=== PATIENT | male | born 1955 | race Caucasian/White ===

== ENCOUNTER 2017-03-22 13:26 | Inpatient (IN) ==
[2017-03-22] MEDS ORDERED: Aspirin 81 MG TAB.CHEW PO STA (13:39)
--- NOTE | 2017-03-22 14:18 | Emergency Department Note ---
Disposition Clinical Impression: NSTEMI (non-ST elevated myocardial infarction), Left ventricular hypertrophy Disposition: Admitted As Inpatient Condition: Good Time of Disposition: 15:51 General Adult HPI - General Chief complaint: ED Shortness of Breath/Dyspnea Stated complaint: warren Time Seen by Provider: 03/22/17 13:33 Source: patient Limitations: no limitations Nursing Notes Reviewed: Yes Vital Signs Reviewed: Yes - History of Present Illness HPI Narrative: 3-4 day history of shortness of breath. Was sent from the [place] for an elevated troponin. Does have left ventricular hypertrophy on his EKG. Denies chest pain. States the shortness of breath is worse whenever he lays down. No dyspnea on exertion. No dyspnea at rest currently. Pain Scale: 0 - Related Data Home Medications Medication Instructions Recorded Confirmed No Known Home Drugs 03/22/17 03/22/17 Allergies Allergy/AdvReac Type Severity Reaction Status Date / Time No Known Allergies Allergy Verified 03/22/17 13:28 All systems ED: reviewed and negative except as stated. Constitutional: Denies: fever, chills ENT ED: Denies: congestion Cardiovascular: Denies: chest pain, palpitations, syncope Respiratory: Reports: dyspnea (Intermittent). Denies: cough, wheezes Gastrointestinal: Denies: abdominal pain, nausea, vomiting, diarrhea, hematemesis, melena, hematochezia Genitourinary: Denies: urgency, dysuria, frequency, hematuria Musculoskeletal: Denies: back pain, neck pain Integumentary: Denies: rash Neurological: Denies: headache, weakness Past Medical History - Past Medical History Medical history: Reports: COPD Psychiatric history: Reports: no psych history - Social History Smoking Status: Current every day smoker Smokeless Tobacco Status: No Alcohol use: Reports: none, rarely Drug use: Reports: marijuana Physical Exam - General Limitations: no limitations General appearance: alert, in no apparent distress - Head Head exam: atraumatic, normocephalic, normal inspection - Eye Eye exam: Present: normal appearance, PERRL, EOMI. Absent: scleral icterus, conjunctival injection - ENT ENT exam: normal exam, normal oropharynx, mucous membranes moist - Neck Neck exam: Present: normal inspection, full ROM, trachea midline. Absent: tenderness, meningismus, lymphadenopathy - Chest Chest inspection: Present: normal inspection, symmetric chest wall rise. Absent : tenderness, rash, abscess - Respiratory Respiratory exam: Present: normal lung sounds bilaterally. Absent: respiratory distress, wheezes, stridor, accessory muscle use - Cardiovascular Cardiovascular exam: Present: regular rate, normal rhythm, normal heart sounds - Abdominal Exam Abdominal exam: Present: soft, Non-Tender. Absent: tenderness, distention, guarding, rebound, rigidity, organomegaly, Anaya's sign, Rovsing's sign, tenderness at McBurney's Point - Extremities Exam Extremities exam: Present: normal inspection, full ROM, normal capillary refill. Absent: tenderness, pedal edema - Back Exam Back exam: Present: normal inspection, full ROM. Absent: tenderness - Neurological Exam Neurological exam: Present: alert, oriented X3 - Psychiatric Psychiatric exam: Present: normal affect, normal mood - Skin Skin exam: Present: warm, dry, intact, normal color. Absent: rash, cyanosis, diaphoresis, erythema Course Course Narrative: Male patient presents emergency from the [facility]. He was found to have an elevated troponin at the [facility] and sent here. His troponin is 0.069. He denies any chest pain. He does state he has had a 3-4 day history of shortness of breath. This was a sudden onset. No cough no fevers no chills. The shortness of breath gets worse whenever he lays down. Denies any shortness of breath at this time. His occurrence every day smoker of 1-1/2 packs of cigarettes. Also smokes marijuana every other day. He is resting comfortably in bed at this time. Lung sounds are clear heart tones are normal. Chest x-ray from the [place] was normal. No signs of pneumonia. We have given patient aspirin while he is here and will admit for ACS rule out. He has never had a cardiac workup previously. He is agreeable to this. He has no signs of edema to his extremities. He does not appear to be fluid overloaded. There are no signs of rales in his lungs. - Consultations Consultation #1: Bonifacio BENITEZ accepted patient's stable condition. Time: 14:38 Vital Signs Temperature 98.0 F 03/22/17 13:29 Pulse Rate 101 03/22/17 13:29 Respiratory Rate 18 03/22/17 13:29 Blood Pressure 163/100 03/22/17 13:29 O2 Sat by Pulse Oximetry 100 03/22/17 13:29 Temperature 97.6 F 03/23/17 07:12 Pulse Rate 77 03/23/17 07:12 Respiratory Rate 14 03/23/17 07:12 Blood Pressure 142/76 03/23/17 07:12 O2 Sat by Pulse Oximetry 99 03/23/17 07:12 Oxygen Delivery Oxygen Delivery Room Air Medical Decision Making - Medical Records Medical records reviewed: Yes I reviewed the patient's medical records. - Lab Data Lab results reviewed: Yes I reviewed the patient's lab results. Result diagrams: 03/23/17 04:20 03/23/17 04:20 - Radiology Data Radiology results reviewed: Yes I reviewed the patient's radiology results. - EKG Data EKG #1 EKG attestation: Yes I reviewed and interpreted this EKG. EKG results narrative: Normal sinus rhythm at a rate of 96. RI interval is 174. Chemistry shows Y2. QT is 349. QTC is 403. Patient appears to have left ventricular hypertrophy. There are no signs of acute ischemia. We do not have a previous EKG to compare to. Attestation Statement - Attestation Attestation: I, Inocencio Alberto, examined this patient and my medical decision-making was reviewed with the LEAD SIMULATION MODELING ENGINEER/PA/Advanced Practice Nurse/Resident Physician. I agree with the documented findings, disposition and treatment plan as described except to the extent set forth below. 61-year-old male presents to emergency department from the [place] for concerns of increasing shortness of breath. Patient states symptoms started acutely about 4 days ago. On evaluation and PA he had an elevated troponin of 0.069. Patient denies chest pain emergency Department. Patient does not have evidence of STEMI on his initial EKG. Patient given aspirin in the emergency department. He will be admitted for further care and evaluation.
[2017-03-22] MEDS ORDERED: Naloxone 0.4 MG/ML INJ IVP PRN (16:19)
[2017-03-22] MEDS ORDERED: Acetaminophen 325 MG TABLET PO PRN (16:19)
[2017-03-22] MEDS ORDERED: *HR* Morphine 2 MG/ML SYRINGE IVP PRN (16:19)
[2017-03-22] MEDS ORDERED: Ondansetron 4 MG/2 ML VIAL IVP PRN (16:19)
--- NOTE | 2017-03-22 17:16 | Internal Med History&Physical ---
Date of Encounter: 03/23/17 Time of Encounter: 17:09 Assessment and Plan (1) Acute exacerbation of CHF (congestive heart failure) Current visit: Yes Status: Acute 1 patient has been experiencing increasing shortness of breath over the past 2 days orthopnea he has mild cardiomegaly on his chest x-ray with small bilateral pleural effusion. Crackles in the bases bilaterally. Systolic murmur. EKG does show some LVH We will obtain cardiac echo 2 continuous cardiac monitoring 3 we will give 20 of Lasix twice a day 4 monitor intake and output daily weight 5 to consult cardiology-spoke with Dr. Rangel 6 nitroglycerin as needed for chest pain shortness of breath 7 morphine as needed 8 low-sodium diet Qualifiers: Congestive heart failure type: unspecified congestive heart failure type Qualified Code(s): I50.9 - Heart failure, unspecified (2) Elevated troponin Current visit: Yes Status: Acute 1 troponin is 0.06 suspect this is demand ischemia from exacerbation of CHF. We will continue to trend troponins patient has not having any chest pain at this time anymore elevations we will initiate on a heparin drip 2 cardiology has been consulted 3 continuous cardiac monitoring (3) Hypertension Current visit: Yes Status: Acute 1 we will give Lasix 20 twice a day-continue to monitor-goal is systolic less than 140 2 low sodium diet Qualifiers: Hypertension type: essential hypertension Qualified Code(s): I10 - Essential (primary) hypertension (4) Tobacco use Current visit: Yes Status: Acute Encourage patient to stop smoking offer nicotine patch which she declined (5) Marijuana use, continuous Current visit: Yes Status: Acute Encouraged patient to stop smoking marijuana informed me that he is not interested in doing that at this time (6) DVT prophylaxis Current visit: Yes Status: Acute Lovenox subcutaneous Internal Medicine - H&P: HPI Chief complaint: SOB Admitted From: Emergency Dept Plans for Post Hospital Care: Home History of present illness: Mr. Benavides is a 61 year old male past medical history of COPD hypertension tobacco use and marijuana use. According to the patient over the past 2-3 days he has been experiencing increasing shortness of breath with no cough fevers or chills. Shortness of breath is worse when he lies down. He states he has not been able to sleep for the past 2 nights and has been sitting up in a chair. He denies any unusual weight gain or weight loss no lower extremity edema or increase in abdominal girth. He is a every day smoker at 1-1/2 pack a day as well as he smokes marijuana every other day. He denies any chest pain abdominal pain nausea vomiting or diarrhea. He presented to the emergency room at the [facility] he was found to have an elevated troponin 0.069. Chest x-ray at the [facility] with cardiomegaly EKG sinus with LVH. He is transferred to this facility for further workup evaluation. Presently the patient denies any chest pain or shortness of breath. Troponin is 0.06 he is hemodynamically stable at this time Past Med Surg Social Fam HX - Past Medical History Medical history: COPD Psychiatric history: no psych history - Social History Smoking Status: Current every day smoker Packs per day: 1 1/2 Smokeless Tobacco Status: No Alcohol use: rarely Drug use: marijuana - Family History Father Age: 85 Living Status: Still Living Hx Family Cardiac Disorders: Yes ([place]) Internal Medicine - H&P: Meds No Known Home Drugs 03/22/17 [History] 3 Allergy/AdvReac Type Severity Reaction Status Date / Time No Known Allergies Allergy Verified 03/22/17 13:28 All Systems PM: A 10-system review of systems was performed and is negative for pertinent findings except as documented above in the HPI. - Constitutional Constitutional: no chills, no fever(s), no night sweats - EENT Eyes: no change in vision, no discharge, no pain, no photophobia Nose, mouth and throat: no dysphagia, no nasal discharge, no neck pain, no sore throat - Cardiovascular Cardiovascular ROS IM: dyspnea, orthopnea - Respiratory Respiratory: dyspnea, no cough, no wheezing, no excessive phlegm production - Gastrointestinal Gastrointestinal: no abdominal pain, no diarrhea, no hematemesis, no hematochezia, no melena, no nausea, no vomiting - Musculoskeletal Musculoskeletal ROS IM: no numbness, no tingling - Integumentary Integumentary IM: no rash, no unusual bruising - Neurological Neurological ROS: no confusion, no convulsions, no focal weakness, no numbness, no tingling, no tremor(s) - Hematologic/Lymphatic Hematologic/Lymphatic: no easy bruising - Constitutional Vitals: Temp Pulse Resp BP Pulse Ox 97.6 F 82 16 154/81 93 03/22/17 16:29 03/22/17 16:29 03/22/17 16:29 03/22/17 16:29 03/22/17 16:29 General appearance: Present: A&O X 3 - Head Head exam: Present: atraumatic, normocephalic - Eye Eye exam: Present: PERRL, conjuntiva pink, sclera anicteric Pupils: Present: PERRL - Neck Neck exam general surgery: Present: supple, trachea midline. Absent: lymphadenopathy - Respiratory Respiratory exam: Absent: accessory muscle use, rhonchi, wheezes Additional comments: Crackles in bases bilaterally - Cardiovascular Cardiovascular exam: Present: RRR, +S1, +S2, systolic murmur. Absent: diastolic murmur, gallop, rubs - GI/Abdominal GI/Abdominal exam: Present: normal bowel sounds, soft, no peritoneal signs. Absent: distended, tenderness - Extremities Exam Extremities exam: Present: warm, radial pulses palpable and symmetrical. Absent : calf tenderness, cyanotic, pedal edema - Neurological Exam Neurological exam: Present: CN II-XII intact, oriented X3, no focal deficits. Absent: pronater drift, facial droop, speech deficit - Skin Skin exam: Present: dry, intact Internal Med - H&P Results - Labs Labs: Lab work completed at the [facility] 03/22/2017 at 11:44 AM Troponin 0.069 Chemistry sodium 144 potassium 3.9 chloride 109 CO2 26 glucose 93 calcium 8.9 BUN 15 creatinine 0.82 CBC today B C7 hemoglobin 14.6 hematocrit 43.7 platelets 175 - EKG Data EKG shows normal: sinus rhythm Rate: normal - EKG Data Prior EKG available for review: yes When compared to previous EKG: there is no significant change EKG comments: 03/22/17 17:27 Sinus rhythm with LVH - Diagnostic Studies Other Images Additional comments: Chest x-ray per radiology read there is mild cardiomegaly. There is a visual or thickening and small bilateral pleural effusions. There is no pneumothorax. No acute osseous abnormalities are identified
[2017-03-22] MEDS: Furosemide 20 MG/2 ML VIAL IVP SCH (18:27)
[2017-03-23 05:40] LABS: Basophils # 0.1 K/mcL (0.0-0.2); Basophils % 0.9 %; Eosinophils # 0.1 K/mcL (0.0-0.6); Eosinophils % 1.7 %; Hematocrit 44.8 % (37.5-50.1); Hemoglobin 14.6 g/dL (12.9-16.9); Immature Granulocytes % 0.3 % (0-4); Lymphocytes # 1.5 K/mcL (0.6-4.6); Lymphocytes % 26.6 %; Mean Corpuscular HGB Conc 32.6 g/dL (31.6-35.5); Mean Corpuscular Hemoglobin 29.7 pg (28.0-33.3); Mean Corpuscular Volume 91.1 fL (83.0-100.0); Mean Platelet Volume 11.3 fL (9.4-12.4); Monocytes # 0.4 K/mcL (0.0-1.3); Monocytes % 7.3 %; Neutrophils # 3.6 K/mcL (1.6-8.9); Platelet Count 193 K/mcL (140-400); Red Blood Count 4.92 M/mcL (4.19-5.50); Red Cell Distribution Width 13.3 % (11.5-14.5); Segmented Neutrophils % 63.2 %
[2017-03-23 05:51] LABS: BUN/Creatinine Ratio 16 (6-26); Blood Urea Nitrogen 17 mg/dL (8-26); Calcium 9.3 mg/dL (8.6-10.8); Carbon Dioxide 28 mEq/L (19-29); Chloride 105 mEq/L (98-109); Chol/HDL Ratio 2.7 (0-4.9); Cholesterol 126 mg/dL (< 200); Glucose 84 mg/dL (70-99); HDL Cholesterol 47 mg/dL (40-59); LDL Cholesterol,Calculated 61 mg/dL (0-99); Magnesium 1.5 mg/dL (1.6-2.6); Osmolality,Calculated 295 (280-300); Potassium 3.9 mEq/L (3.5-4.5); Sodium 142 mEq/L (136-145); Triglycerides 90 mg/dL (< 150); eGFR For African Americans > 60 (> 60); eGFR For Non-African Americans > 60 (> 60)
--- NOTE | 2017-03-23 11:22 | Cardiology Consult Note ---
Date of Encounter: 03/23/17 Time of Encounter: 11:21 Assessment and Plan (1) Acute exacerbation of CHF (congestive heart failure) Current Visit: Yes Status: Acute New diagnosis. BNP >5000. CXR at [facility] reportedly small bilateral pleural effusions. Presented with 2 days of dyspnea, orthopnea, PND. Denies weight gain or lower extremity edema. Echo pending--this will determine systolic vs. diastolic dysfunction. Agree with IV Lasix 20mg BID. No output recorded. Strict I/Os, NA and fluid restriction, daily weights. Further recommendations pending echo. Qualifiers: Congestive heart failure type: unspecified congestive heart failure type Qualified Code(s): I50.9 - Heart failure, unspecified (2) Elevated troponin Current Visit: Yes Status: Acute Troponin reportedly 0.69 at [facility], then 0.06 and 0.07 at [facility], mildly elevated in setting of CHF exacerbation, nondiagnostic for ACS. Echo pending. Pt denies chest pain. EKG with LVH and septal PA vs reciprocal changed from LVH. No prior for comparison. (3) Tobacco use Current Visit: Yes Status: Acute Smoking cessation counseling given. (4) Murmur, cardiac Current Visit: Yes Status: Acute 2/6 murmur noted. Echo pending to evaluate for valvular dysfunction. Discussion w patient/family: The assessment and plan as outlined above was discussed with the patient and/or family members who expressed understanding and agreement. All questions were answered. Thank you for involving us in the care of your patient. Please call with any questions. I will discuss all the above with Dr. Ana Rangel and make changes as necessary. History of Present Illness Consult date: 03/23/17 Requesting physician: Vianca Godinez Consult reason: CHF Chief complaint: dyspnea History of present illness: Mr. Benavides is a 61 year old malewith past medical history of COPD, hypertension, tobacco use, and marijuana use. According to the patient over the past 2-3 days he has been experiencing increasing shortness of breath with no cough fevers or chills. He reports orthopnea. He states he has not been able to sleep for the past 2 nights and has been sitting up in a chair. He denies any unusual weight gain or weight loss no lower extremity edema or increase in abdominal girth. He is a every day smoker at 1-1/2 pack a day as well as he smokes marijuana every other day. He denies any chest pain. He presented to the emergency room at the [facility] he was found to have an elevated troponin 0.069. Troponin at [facility] 0.06, 0.07. Chest x-ray at the [facility] small bilateral pleural effusions. Echo pending. Pt reports feeling better since receiving Lasix and supplemental O2. Echo pending. BNP >5000. Past Med Surg Social Fam HX - Past Medical History Medical history: COPD, hypertension Psychiatric history: no psych history - Social History Smoking Status: Current every day smoker Packs per day: 1 1/2 Smokeless Tobacco Status: No Alcohol use: none, rarely Drug use: marijuana - Family History Father Age: 85 Living Status: Still Living Hx Family Cardiac Disorders: Yes ([place]) Medications and Allergies No Known Home Drugs 03/22/17 [History] 3 Allergy/AdvReac Type Severity Reaction Status Date / Time No Known Allergies Allergy Verified 03/22/17 13:28 All Systems Review: A 10-system review of systems was performed and is negative for pertinent findings except as documented above in the HPI. - Cardiovascular Cardiovascular: as per HPI, dyspnea at rest, dyspnea on exertion, orthopnea, paroxysmal nocturnal dyspnea - Respiratory Respiratory: dyspnea Physical Examination Vital Signs Temp Pulse Resp BP Pulse Ox 03/23/17 07:12 97.6 F 77 14 142/76 99 03/23/17 03:34 97.7 F 73 16 133/67 96 03/22/17 23:08 97.5 F L 76 14 154/77 100 03/22/17 19:16 98.2 F 82 16 135/75 97 03/22/17 16:29 97.6 F 82 16 154/81 93 03/22/17 16:09 16 149/77 03/22/17 15:30 66 16 147/78 97 03/22/17 15:00 68 16 147/80 97 03/22/17 14:00 78 16 159/85 100 03/22/17 13:29 98.0 F 101 18 163/100 100 Intake and Output 03/22/17 03/23/17 03/23/17 23:59 07:59 15:59 Intake Total 120 / 120 Balance 120 / 120 Intake: Oral 120 / 120 Other: Meal Dinner NPO Percent of Meal Consumed 100% Weight 61.236 kg Patient Weight 03/23/17 23:59 Weight 61.236 kg General: Conversant, No Apparent Distress HEENT: Atraumatic, Normocephaly, Mucus Membranes Moist Neck: Normal carotid pulses Cardiac: Reg Rate and Rhythm, Normal S1 and S2, Other (2/6 murmur noted) Lungs: Other (diminished) Neuro: Alert and responsive, No focal deficits noted Abdomen: Soft, Non-Tender Skin: No rashes noted on visualized skin Musculoskeletal: No Chest Wall Tenderness Extremities: No Clubbing, No Cyanosis, No Edema, Normal Pulses Results 03/23/17 04:20 03/23/17 04:20 Lab Results 03/22/17 03/22/17 03/23/17 16:39 17:37 04:20 WBC 5.8 Hgb 14.6 Hct 44.8 Plt Count 193 Sodium Potassium Chloride Carbon Dioxide BUN Creatinine Glucose Calcium Magnesium Troponin I 0.06 H* B-Natriuretic Peptide > 5000 H 03/23/17 03/23/17 04:20 04:20 WBC Hgb Hct Plt Count Sodium 142 Potassium 3.9 Chloride 105 Carbon Dioxide 28 BUN 17 Creatinine 1.06 Glucose 84 Calcium 9.3 Magnesium 1.5 L Troponin I 0.07 H* B-Natriuretic Peptide Short CBC 03/23/17 Range/Units 04:20 WBC 5.8 (4.3-11.1) K/mcL Hgb 14.6 (12.9-16.9) g/dL Hct 44.8 (37.5-50.1) % Plt Count 193 (140-400) K/mcL Neutrophils # 3.6 (1.6-8.9) K/mcL BMP 03/23/17 Range/Units 04:20 Sodium 142 (136-145) mEq/L Potassium 3.9 (3.5-4.5) mEq/L Chloride 105 (98-109) mEq/L Carbon Dioxide 28 (19-29) mEq/L BUN 17 (8-26) mg/dL Creatinine 1.06 (0.72-1.25) mg/dL Glucose 84 (70-99) mg/dL Calcium 9.3 (8.6-10.8) mg/dL Cardiac Enzymes 03/23/17 03/22/17 Range/Units 04:20 16:39 Troponin I 0.07 H* 0.06 H* (0-0.03) ng/mL Active Medications Acetaminophen (Tylenol) 650 mg PO Q6HR PRN PRN Reason: Mild Pain (1-3) Stop: 09/21/17 16:20 Aspirin (Aspirin Ec) 81 mg PO DAILY ISABELLA Stop: 09/22/17 09:01 Furosemide (Lasix) 20 mg IVP BIDDIURETIC ISABELLA Stop: 09/21/17 17:16 Last Admin: 03/22/17 18:27 Dose: 20 mg Morphine Sulfate (Morphine Sulfate) 2 mg IVP Q4HR PRN PRN Reason: Severe Pain (7-10) Stop: 09/21/17 16:20 Naloxone HCl (Narcan) 0.4 mg IVP Q2MIN PRN PRN Reason: Opioid Reversal Stop: 09/21/17 16:20 Ondansetron HCl (Zofran) 4 mg IVP Q8HR PRN PRN Reason: Nausea And Vomiting Stop: 09/21/17 16:20 - Imaging and Cardiology Echo: pending - EKG Interpretation EKG results cardiology: personally reviewed (LVH, possible septal PA vs recriprocal changes secondary to LVH), other (12 hr tele AVG HR 70, SR, no significant pauses or arrhythmias.) Consult Discharge Plan - Plan Referrals: [facility] [Primary Care Provider[facility] - Ruth Ann Hernandez [Family Provider] -
[2017-03-23] MEDS: Furosemide 20 MG/2 ML VIAL IVP SCH ×2 (11:31→18:02)
[2017-03-23] MEDS: Aspirin Enteric Coated 81 MG Tablet PO SCH (11:31)
--- NOTE | 2017-03-23 14:21 | Internal Med Progress Note ---
Date of Encounter: 03/23/17 Time of Encounter: 13:30 - Assessment and plan (1) Acute exacerbation of CHF (congestive heart failure) Current Visit: Yes Status: Acute Assessment and plan: Patient reports one-week history of increasing dyspnea, last 2 days nocturnal dyspnea and orthopnea. He does not have a cough above his baseline cough. Patient denies dyspnea on exertion or chest pain. He denies any weight gain or lower extremity edema. No abdominal distention. Patient does not wear oxygen at home, however he is requiring oxygen to maintain his sats greater than 92%. Troponins are mildly elevated, flat and adynamic in the setting of exacerbation of CHF. Lungs are clear and diminished throughout. BNP is greater than 5000. Patient had a chest x-ray at the [facility] reportedly showed small bilateral pleural effusions. Echocardiogram has been completed, results are not available yet. Continue telemetry Lasix 20 mg IV twice daily Strict I and O, daily weights, fluid restriction, and low-sodium diet. Patient has been seen by cardiology, I appreciate the recommendations and consultation. Qualifiers: Congestive heart failure type: unspecified congestive heart failure type Qualified Code(s): I50.9 - Heart failure, unspecified (2) Hypertension Current Visit: Yes Status: Acute Assessment and plan: Vital signs are stable and within normal limits. Hypertension is chronic. Patient does not take any medications at home. Continue to monitor vital signs. Qualifiers: Hypertension type: essential hypertension Qualified Code(s): I10 - Essential (primary) hypertension (3) Tobacco use Current Visit: Yes Status: Acute Assessment and plan: Patient states she smokes approximately 1 pack per day and is not interested in smoking cessation at this time. (4) Marijuana use, continuous Current Visit: Yes Status: Chronic Assessment and plan: Patient reports smoking marijuana every other day. (5) Murmur, cardiac Current Visit: Yes Status: Acute Assessment and plan: New murmur. Patient states that he is not aware of murmur in the past. Echo is pending at this time (6) Elevated troponin Current Visit: Yes Status: Acute Assessment and plan: Troponin mildly elevated, flat, adynamic the setting of exacerbation of congestive heart failure., Most likely demand ischemia. Patient denies chest pain. Echocardiogram is pending Troponins are negative 3. Continue telemetry Patient has been seen by cardiology. (7) DVT prophylaxis Current Visit: Yes Status: Acute Assessment and plan: Lovenox subcutaneous. - Time Spent With Patient less than 15 minutes - Subjective Interval history: Pt seen and assessed at bedside at 1330. Pt denies chest pain and states that his SOB is somewhat better. He reports 1 week history of nocturnal dyspnea and increasing SOB. Denies headache, dizziness, lightheadedness, chest pain, n/v/d, diaphoresis, or abdominal pain. - Constitutional Vitals: Temp Pulse Resp BP Pulse Ox 98.3 F 69 15 145/71 98 03/23/17 11:26 03/23/17 11:26 03/23/17 11:26 03/23/17 11:26 03/23/17 11:26 General appearance: Present: cooperative, A&O X 3, pleasant, no acute distress, answers questions appropriately - Head Head exam: Present: atraumatic, normal inspection, normocephalic - Eye Eye exam: Present: normal appearance, conjuntiva pink, sclera anicteric - Neck Neck exam general surgery: Present: supple, trachea midline. Absent: lymphadenopathy, tenderness - Respiratory Respiratory exam: Present: CTAB. Absent: accessory muscle use, chest wall tenderness, rales, rhonchi, wheezes - Cardiovascular Cardiovascular exam: Present: RRR, +S1, +S2. Absent: diastolic murmur, gallop, rubs, systolic murmur - GI/Abdominal GI/Abdominal exam: Present: normal bowel sounds, soft. Absent: distended, hepatomegaly, tenderness - Extremities Exam Extremities exam: Present: normal capillary refill, normal inspection, warm, radial pulses palpable and symmetrical. Absent: calf tenderness, cyanotic, pedal edema, tenderness - Neurological Exam Neurological exam: Present: alert, oriented X3, no focal deficits. Absent: facial droop, speech deficit - Skin Skin exam: Present: dry, intact, normal color, warm. Absent: rash Internal Medicine: Result - Labs CBC & Chem 7: 03/23/17 04:20 03/23/17 04:20 Labs: Short CBC 03/23/17 Range/Units 04:20 WBC 5.8 (4.3-11.1) K/mcL Hgb 14.6 (12.9-16.9) g/dL Hct 44.8 (37.5-50.1) % Plt Count 193 (140-400) K/mcL Neutrophils # 3.6 (1.6-8.9) K/mcL BMP 03/23/17 04:20 Sodium 142 Potassium 3.9 Chloride 105 Carbon Dioxide 28 BUN 17 Creatinine 1.06 Glucose 84 Calcium 9.3 Cardiac Enzymes 03/22/17 03/23/17 Range/Units 16:39 04:20 Troponin I 0.06 H* 0.07 H* (0-0.03) ng/mL Consult Discharge Plan - Plan [facility]errals: [facility] Care Provider[facility] - Ruth Ann Hernandez [Family Provider] -
[2017-03-24 05:29] LABS: Basophils # 0.1 K/mcL (0.0-0.2); Basophils % 0.9 %; Eosinophils # 0.1 K/mcL (0.0-0.6); Eosinophils % 1.7 %; Hematocrit 44.8 % (37.5-50.1); Hemoglobin 14.7 g/dL (12.9-16.9); Immature Granulocytes % 0.2 % (0-4); Lymphocytes # 1.7 K/mcL (0.6-4.6); Lymphocytes % 29.7 %; Mean Corpuscular HGB Conc 32.8 g/dL (31.6-35.5); Mean Corpuscular Hemoglobin 29.6 pg (28.0-33.3); Mean Corpuscular Volume 90.1 fL (83.0-100.0); Mean Platelet Volume 11.5 fL (9.4-12.4); Monocytes # 0.5 K/mcL (0.0-1.3); Monocytes % 7.9 %; Neutrophils # 3.5 K/mcL (1.6-8.9); Platelet Count 182 K/mcL (140-400); Red Blood Count 4.97 M/mcL (4.19-5.50); Red Cell Distribution Width 13.2 % (11.5-14.5); Segmented Neutrophils % 59.6 %
[2017-03-24 05:46] LABS: BUN/Creatinine Ratio 19 (6-26); Blood Urea Nitrogen 21 mg/dL (8-26); Calcium 9.5 mg/dL (8.6-10.8); Carbon Dioxide 30 mEq/L (19-29); Chloride 101 mEq/L (98-109); Glucose 86 mg/dL (70-99); Osmolality,Calculated 294 (280-300); Potassium 3.7 mEq/L (3.5-4.5); Sodium 141 mEq/L (136-145); eGFR For African Americans > 60 (> 60); eGFR For Non-African Americans > 60 (> 60)
[2017-03-24] MEDS: Aspirin Enteric Coated 81 MG Tablet PO SCH (08:38)
[2017-03-24] MEDS: Furosemide 20 MG/2 ML VIAL IVP SCH ×2 (08:38→18:09)
--- NOTE | 2017-03-24 10:19 | Event Note ---
Date of Encounter: 03/24/17 Time of Encounter: 10:19 - Cardiology Event Note Recommend [facility] for new CMP on echo. R/B/A discussed. Pt agrees to proceed. [facility] today.
--- NOTE | 2017-03-24 11:07 | Electrocardiograph Report ---
[place] [address] Test Date: 2017-03-22 Pat Name: Keenan Benavides Department: 103 Room: 3B Gender: M [employer] Manager: SONJA : 1955 Requested By: Liana Haas Order Number: [id number] Reading MD: Inocencio Rangel Measurements Intervals [place] Rate: 96 P: -18 DC: 174 QRS: 90 QRSD: 102 T: -41 QT: 349 QTc: 403 Interpretive Statements SINUS RHYTHM LEFT ATRIAL ENLARGEMENT LEFT VENTRICULAR HYPERTROPHY AND ST-T CHANGE POSSIBLE SEPTAL MYOCARDIAL INFARCTION Electronically Signed On 03-24-2017 11:05:56 EDT by Inocencio Rangel
--- NOTE | 2017-03-24 12:03 | Electrocardiograph Report ---
[place] [address] Test Date: 2017-03-23 Pat Name: Keenan Benavides Department: 113 Room: 3B Gender: M M[employer] Supervisor: : 1955 Requested By: Liana Haas Order Number: [id number] Reading MD: Matheus Deal MD Measurements Intervals [place] Rate: 67 P: 79 CA: 175 QRS: 42 QRSD: 109 T: -51 QT: 429 QTc: 444 Interpretive Statements SINUS RHYTHM LEFT ATRIAL ENLARGEMENT Left ventricular hypertrophy WITH STRAIN PATTERN Electronically Signed On 03-24-2017 12:01:51 EDT by Matheus Deal MD
--- NOTE | 2017-03-24 12:16 | Pre-Sedation Evaluation ---
Pre-sedation evaluation - Pre-sedation checklist Date of procedure: 03/24/17 Procedure: [facility] Recent Vitals: Last Vital Signs Temp 97.7 F 03/24/17 11:00 Pulse 68 03/24/17 11:00 Resp 16 03/24/17 11:00 BP 132/76 03/24/17 11:00 Pulse Ox 98 03/24/17 11:00 H&P (including ROS) documented in medical record: Yes Previous reaction to sedatives/anesthetics: No Dietary Status: NPO after Midnight Airway Assessment: Patient can open mouth completely, TMJ function normal, Micrognathia (under-bite, receding chin) absent, Neck with adequate range of motion Dentition: No loose teeth or bridges Possible difficult airway: No ASA Classification *see protocol: CLASS II-Mild systemic disease Plan of Care: Pt appropriate candidate for procedure/moderate/conscious sedation , Risks/benefits of procedure/sedation discussed w/ patient/family
[2017-03-24] MEDS ORDERED: *HR* Heparin 10,000 UNIT/10 ML VIAL ONE (12:46)
[2017-03-24] MEDS ORDERED: 0.9 % Sodium Chloride 1,000 ML ONE ×2 (12:46→13:12)
[2017-03-24] MEDS ORDERED: Nitroglycerin 1,000 MCG/10 ML VIAL IV ONE (12:46)
[2017-03-24] MEDS ORDERED: Heparin 1,000 UNITS/500 mL NS 500 ML ONE (12:46)
[2017-03-24] MEDS ORDERED: *HR* Midazolam HCl 2 MG/2 ML VIAL ONE (13:11)
[2017-03-24] MEDS ORDERED: *HR* FentaNYL (PF) 250 MCG/5 ML VIAL ONE (13:12)
--- NOTE | 2017-03-24 13:55 | Invasive Diagnostic Lab Proc ---
Name: Keenan Benavides Date of Study: 03/24/2017 Date: 1955 Ht: 68.9in Medical Record#: [id number] Age: 61 Wt: 130.07lb Gender: Male BSA: 1.72 Order #: [id number] BMI: 19.27 Physicians Procedure Physician: Ana Rangel MD, [facility] Referring MD: Referring MD: Staff Name Position Time In Tom Munoz RN [employer] Architect 12:49 PM Donna Herrera RT Scrub 12:49 PM Sites, Jazz RT (R) Monitor 12:49 PM Indications Indication Cardiomyopathy Non-Stemi Procedures Performed Procedure L HRT ARTERY/VENTRICLE ANGIO INJECT SUPRVLVAORTAGRAM Pre-Procedure Checklist Informed consent is complete signed and on chart. H&P is on chart. ID band is on and ID verified with patient. Patient NPO for procedure The procedure was described for the patient and questions were answered. Blood Pressure: 132/76 ECG is on chart. Rhythm: NSR Plan of Care Patient will tolerate the procedure without complications. Adequate level of comfort will be maintained. Hemodynamics will remain stable Patient will recover from procedure without complications. Respiratory function will be maintained. Cardiac rhythm will remain stable. Patient temperature will be maintained. Patient and/or family have verbalized understanding of the procedure. Patient Education Chief Complaint/Reason for Test: Cardiac Cath Developmental Category: Adult (18-64 years) Developmentally Appropriate for Age: Yes Learning Barriers: None Education Needs: Procedure Education Method: Verbal Information Taught: Cardiac Cath Educational Evaluation: Able to repeat information Intravenous Access Time IV Size Location DC'd Fluid/Drip Rate Units RN 20g 1 06/13" Patent On Arrival Rt Arm 0.9NaCl 25 ml/hr Tom Munoz RN Allergies No Known Allergies Vital Signs Time BP (mmHg) HR (bpm) O2 Sat. RR (bpm) LOC 132 / 76 68 100 % 16 5 = Fully awake and oriented or at pre-proc level 01:16 PM 148 / 79 76 98 % 30 01:20 PM 147 / 79 74 96 % 20 01:25 PM 150 / 72 66 97 % 18 01:30 PM 162 / 64 75 99 % 18 01:35 PM 154 / 72 74 100 % 20 Procedural Medications Time Medication Dose Units Method Given By 01:17 PM Oxygen 2 L/min nasal cannula Tom Munoz RN 01:17 PM Versed 2 mg Intravenous Tom Munoz RN 01:17 PM Fentanyl 50 mcg Intravenous Tom Munoz RN 01:23 PM Benadryl 25 mg Intravenous Tom Munoz RN 01:23 PM Lidocaine 2% 5 ml Subcutaneous Ana Rangel MD, [facility] ASA Classification: CLASS II- Mild systemic disease (i.e. well-controlled diabetes, hypertension, asthma, cigarette smoking) Denys Score Preprocedure Postprocedure Activity 2- Moves 4 extremities sustained head lift Activity 2- Moves 4 extremities sustained head lift Circulation 2- SBP +/= 20 points of pre-anesthetic level Circulation 2- SBP +/= 20 points of pre-anesthetic level Consciousness 2- Awake and alert oriented x 3 Consciousness 2- Awake and alert oriented x 3 O2 Saturation 2- Able to maintain O2 satruation of 92% on room air O2 Saturation 2- Able to maintain O2 satruation of 92% on room air Respiratory 2- Able to deep breathe and cough well Respiratory 2- Able to deep breathe and cough well Total Score 10 Total Score 10 Contrast Agent: Isovue Diagnostic Contrast: 98 ml Total Contrast: 98 ml Fluoro Dose: 101 mGy Procedure Log Time Note Enter By 12:45 PM CathStat 12:49 PM Tom Munoz RN Position: [employer] Architect Time in: 12:49 tsites 12:49 PM Donna Herrera RT Position: Scrub Time in: 12:49 tsites 12:49 PM Jazz Lemos RT (R) Position: Monitor Time in: 12:49 tsites 12:49 PM Clinical Presentation: Non-STEMI tsites 12:49 PM Patient charges- Angio tray pack, Navilyst 3mm J, Pulse Oximetry and ACIST tubing and transducer tsites 01:10 PM Pt arrived to crime lab analyst 2 at 13:10 tsites 01:10 PM Physician arrived 13:10 tsites 01:10 PM Meet and greet completed tsites 01:10 PM Sign in performed according to hospital policy. tsites 01:10 PM Procedure start 13:10 tsites 01:14 PM Vitals capture started with the following parameters, Patient=Adult, Interval=5 min, Initial Cpdgirej=976 mmHg, Deflation Rate=5 mmHg, Cuff placed on Left Arm 01:15 PM Recorded ECG: HR=67 Condition=Condition 1 01:16 PM HR=76 bpm, KSTF=370/79 mmhg, SpO2=98.0 %, Resp=30 B/min 01:17 PM Hair removed from procedure site in holding area using clippers. Bilateral groin prepped with Chloraprep by Jazz Lemos (R), safety strap applied then patient was draped. Skin intact. tsites : PM Time: 13:17 Oxygen on at 2 L/min per nasal cannula by Tom Munoz RN tsites : PM Time: 13:17 Versed 2 mg Intravenous Given by Tom Munoz RN tsites : PM Time: 13:17 Fentanyl 50 mcg Intravenous Given by Tom Munoz RN tsites :19 PM Recorded ECG: HR=74 Condition=Condition 1 01:20 PM HR=74 bpm, BBMH=132/79 mmhg, SpO2=96.0 %, Resp=20 B/min 01: PM Time: 13:23 Benadryl 25 mg Intravenous Given by Tom Munoz RN tsites : PM Time out performed according to hospital policy tsites PM Time: 13:23 5 ml Lidocaine 2% to right groin Subcutaneous Given by Ana Rangel MD, [facility] tsites : PM Access obtained by percutaneous puncture. 5Fr 10cm Terumo [place] sheath placed in right Femoral artery. [id number] tsites : PM 5Fr FL 4 catheter inserted over the wire [facility] tsites : PM 0.035 145cm Navilyst 3mmJ wire [id number] tsites :25 PM HR=66 bpm, JSAT=789/72 mmhg, SpO2=97.0 %, Resp=18 B/min : PM LCA angiography performed in multiple views. tsites : PM Recorded Pressure: Ao, HR=67, Condition=Condition 1 (Aorta) Ao 114/64/85 01:27 PM wire reinserted catheter removed tsites : PM 5Fr FR 4 catheter inserted over the wire [facility] tsites : PM RCA angiography performed in multiple views. tsites : PM wire reinserted catheter removed tsites : PM 5Fr Pigtail catheter inserted over the wire [facility] tsites : PM Catheter selectively placed in left ventricle tsites :30 PM Bolus angiogram of left Ventricle complete: 10 ml/sec for a total of 30 mls tsites 01:30 PM HR=75 bpm, FHDK=111/64 mmhg, SpO2=99 %, Resp=18 B/min 01:30 PM Pressure channel 3 zeroed. 01:30 PM Recorded Pressure: LV, HR=76, Condition=Condition 1 (Left Ventricle) LV 113/18/17 01:31 PM Recorded Pressure: LV, Ao, HR=74, Condition=Condition 1 (Left Ventricle) LV 146/53/65, (Aorta) Ao 123/74/98 01:32 PM Bolus angiogram of Aortic root complete: 15 ml/sec for a total of 30 mls tsites 01:32 PM wire reinserted catheter removed tsites 01:32 PM Bolus angiogram of right Femoral complete: 2 ml/sec for a total of 4 mls tsites 01:32 PM Procedure completed at 13:32 tsites 01:33 PM Sign out completed: Radiation Dose 101 mGy Fluoro Time: 2.0 Isovue 370 - 500ml contrast 98 ml given by Ana Rangel MD, [facility]. Complications: NoneCardiac Rehab Consult needed: NoConfirmed administered medications: Yes tsites 01:33 PM Isovue 370 - 500ml,1 Bottle(s) used. tsites 01:33 PM Arterial sheath pulled, Mynx closure device used and was Successful S/N. tsites 01:33 PM Post ECG NSR tsites 01:33 PM Post Blood Pressure 162/64 tsites 01:33 PM 13:33 Post Pulses Bilateral DP & PT 2+ tsites 01:34 PM Information taught Cardiac Cath and Mynx tsites 01:34 PM Education needs Procedure, Plan of Care, and Responsibilities of Patient in Care tsites 01:34 PM Learning barriers :None tsites 01:34 PM Education Methods Verbal tsites 01:34 PM Education evaluation Able to repeat information tsites 01:34 PM Site status No bleeding/hematoma - Rt Groin as reported by Donna Herrera RT at 13:34 tsites 01:34 PM Opsite applied tsites 01:35 PM HR=74 bpm, MTOK=430/72 mmhg, UbG3=529.0 %, Resp=20 B/min 01:37 PM Report given to srinivasan KENT Pt taken to Room #38. 13:36 tsites 01:37 PM Delay to floor No tsites 01:37 PM Patient out of room: 13:37 tsites 01:37 PM Family placed in consult room. tsites 01:40 PM Coronary Dominance: Left tsites 01:40 PM Lesion found in Proximal LAD. Pre Stenosis: 20 Pre TIN Flow: tsites 01:40 PM Lesion found in Mid LAD. Pre Stenosis: 15 Pre TIN Flow: tsites 01:40 PM Proximal Left Anterior Descending Coronary Artery with 20% stenosis. If graft is supplying this territory, 0 % stenosis. tsites 01:40 PM Mid/Distal Left Anterior Descending Coronary Artery and diagonal branches with 15% stenosis. If graft is supplying this area, 0 % stenosis tsites Complications Complication None Hemodynamics Pressures Site Systolic/A Wave Diastolic/V Wave Mean AO 114 64 85 LV 113 18 17 LV 146 53 65 AO 123 74 98 Post Procedure Information Blood Pressure: 162/64 mmHg Rhythm: NSR Post procedural instructions were given Closure Device Time Device Success/Fail 03/24/2017 1:34:00 PM MynxGrip Successful Site Checks Time Location Status Staff Sheath In? Note 01:34 PM Rt Groin No bleeding/hematoma Donna Herrera RT Pulses Time Site Pre-Procedure Post-Procedure Note Bilateral DP & PT 2+ 1:33:00 PM Bilateral DP & PT 2+ Updated by Jazz Lemos RT (R) on 03/24/2017 1:47:20 PM Jazz Lemos RT electronically signed on 03/24/2017 1:49:37 PM with status of Final
--- NOTE | 2017-03-24 14:28 | Event Note ---
Date of Encounter: 03/24/17 Time of Encounter: 14:20 - Cardiology Event Note Cardiac catheterization today demonstrates minimal plaque disease. EF 30% with severe global LV dysfunction and severe LV enlargement. Severe AI. Review of echo only mild MR, no significant pulm HTN. Bicuspid AV with mild/moderate , severe AI. Severe LVE with EF 30%. Suspect chronic AI. Will need JONI tomorrow as well as CTA chest to assess aortic root. Will need AVR.
[2017-03-25 04:30] LABS: Basophils % 0.4 %; Eosinophils # 0.2 K/mcL (0.0-0.6); Hematocrit 45.3 % (37.5-50.1); Hemoglobin 15.3 g/dL (12.9-16.9); Immature Granulocytes % 0.4 % (0-4); Lymphocytes # 1.5 K/mcL (0.6-4.6); Lymphocytes % 20.4 %; Mean Corpuscular HGB Conc 33.8 g/dL (31.6-35.5); Mean Corpuscular Hemoglobin 30.2 pg (28.0-33.3); Mean Corpuscular Volume 89.3 fL (83.0-100.0); Mean Platelet Volume 10.9 fL (9.4-12.4); Monocytes # 0.5 K/mcL (0.0-1.3); Monocytes % 7.1 %; Neutrophils # 5.1 K/mcL (1.6-8.9); Platelet Count 181 K/mcL (140-400); Red Blood Count 5.07 M/mcL (4.19-5.50); Red Cell Distribution Width 13.2 % (11.5-14.5); Segmented Neutrophils % 69.7 %
[2017-03-25 04:49] LABS: BUN/Creatinine Ratio 22 (6-26); Blood Urea Nitrogen 25 mg/dL (8-26); Calcium 9.6 mg/dL (8.6-10.8); Carbon Dioxide 32 mEq/L (19-29); Chloride 99 mEq/L (98-109); Glucose 95 mg/dL (70-99); Osmolality,Calculated 294 (280-300); Potassium 3.8 mEq/L (3.5-4.5); Sodium 140 mEq/L (136-145); eGFR For African Americans > 60 (> 60); eGFR For Non-African Americans > 60 (> 60)
[2017-03-25] MEDS: Furosemide 20 MG/2 ML VIAL IVP SCH ×2 (09:33→18:00)
[2017-03-25] MEDS: Aspirin Enteric Coated 81 MG Tablet PO SCH (09:33)
[2017-03-25] MEDS ORDERED: Tetracaine/Benzocaine/Butamben 200MG/SPRAY (100SPY/BOT) MM ONE (12:06)
[2017-03-25] MEDS ORDERED: 0.9 % Sodium Chloride 500 ML IVC ONE (12:06)
[2017-03-25] MEDS: *HR* FentaNYL (PF) 100 MCG/2 ML VIAL IVP PRN ×2 (12:45→12:50)
[2017-03-25] MEDS: *HR* Midazolam HCl 5 MG/5 ML VIAL IVP PRN ×4 (12:45→13:05)
--- NOTE | 2017-03-25 14:13 | Event Note ---
Date of Encounter: 03/25/17 Time of Encounter: 14:08 - Cardiology Event Note Pt had CTA yesterday that showed 4.9cm fusiform aneurysm of ascending thoracic aorta. JONI today preliminary report--severe AR, which confirms the suspected severe AI. Final report pending. Cardiac catheterization yesterday demonstrated minimal plaque disease. EF 30% with severe global LV dysfunction and severe LV enlargement. Severe AI. Right femoral access site healing well--no bleeding, hematoma or ecchymosis noted. Review of surface echo only mild MR, no significant pulm HTN. Bicuspid AV with mild/moderate , severe AI. EF 30%. Continue ASA, Statin, BB, MELIA-i. 24 hr tele AVG HR 65, SR, no significant pauses or arrhythmias. BNP has decreased from >5000 to 1784, reports dyspnea is improved. Pt will need aortic valve replacement and likely aneurysm repair at that time since he has a 4.9cm fusiform aneurysm of ascending thoracic aorta. [facility]--message sent to [facility] cardiology office to schedule outpt follow-up in 1-2 weeks and to contact [facility] to [facility] pt have [facility]R/aneurysm repair done. Surgery can be done as outpt. Cardiology signing off. Reconsult PRN. Outpt follow-up being coordinated. Transition to PO Lasix prior to d/c.
[2017-03-25 14:47] VITALS: BP 103/62
--- NOTE | 2017-03-25 17:24 | Internal Med Progress Note ---
Date of Encounter: 03/25/17 Time of Encounter: 17:20 - Assessment and plan (1) Acute exacerbation of CHF (congestive heart failure) Current Visit: Yes Status: Acute Assessment and plan: Patient reports one-week history of increasing dyspnea, last 2 days nocturnal dyspnea and orthopnea. He does not have a cough above his baseline cough. Patient denies dyspnea on exertion or chest pain. He denies any weight gain or lower extremity edema. No abdominal distention. Patient does not wear oxygen at home, however he is requiring oxygen to maintain his sats greater than 92%. Troponins were mildly elevated, flat and adynamic in the setting of exacerbation of CHF. Lungs are clear and diminished throughout. BNP was greater than 5000,1784 today . Patient had a chest x-ray at the [facility] reportedly showed small bilateral pleural effusions. CTA showed 4.9cm aneurysm or ascending thoracic aorta and pt will need aortic valve replacement. This can be done outpatient and cardiology is coordinating between [facility] and [place]. Echo results below Lasix 20 mg po daily Echocardiogram 03/22/17 17:03 Impressions: Severely dilated left ventricle. Severe LV systolic dysfunction, LVEF 30%. There is global LV hypokinesis. Mild concentric left ventricular hypertrophy. Elevated LV filling pressures. Normal right ventricular size and function. There is a small pericardial effusion present. There is no echocardiographic evidence of tamponade. Bicuspid aortic valve with fusion of right and left coronary cusps. Mild-moderate aortic stenosis. Moderate-severe aortic regurgitation, which is eccentric (directed towards anterior leaflet of the mitral valve). Mildly thickened mitral valve leaflets with bileaflet tethering. Mild mitral regurgitation. Unable to estimate RVSP due to lack of TR jet. Consider JONI to further evaluate the severity of the aortic regurgitation. Based on the severely dilated left ventricle, I suspect the aortic regurgitation is severe. Abnormal results were discussed with the inpatient cardiology consult service (Dr. Ana Rangel). Left Ventricular Wall Motion: Rest Echo Findings The apex, apical inferior, mid inferior, basal inferior, apical anterior, mid anterior, basal anterior, apical septal, mid inferior septal, basal inferior septal, apical lateral, mid anterior lateral, basal anterior lateral, mid anterior septal, mid inferior lateral, basal anterior septal and basal inferior lateral mcfarland were hypokinetic. Findings: Study Quality * Technically adequate exam. ECG Findings * Normal sinus rhythm. Left Ventricle * Severely dilated left ventricle. * Severe LV systolic dysfunction, LVEF 30%. There is global LV hypokinesis. * Mild concentric left ventricular hypertrophy. * Elevated LV filling pressures. Right Ventricle * Normal right ventricular size and function. Left Atrium * Severely dilated left atrium. Right Atrium * Normal right atrial size. Aorta * Normally sized aortic root. Pericardium * There is a small pericardial effusion present. * There is no echocardiographic evidence of tamponade. IVC * Normal IVC dimensions and inspiratory collapse. Aortic Valve * Bicuspid aortic valve with fusion of right and left coronary cusps. * Mild-moderate aortic stenosis. * Moderate-severe aortic regurgitation, which is eccentric (directed towards anterior leaflet of the mitral valve). Mitral Valve * Mildly thickened mitral valve leaflets with bileaflet tethering. * No mitral stenosis. * Mild mitral regurgitation. 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 * No tricuspid stenosis. * Trace tricuspid regurgitation. * Unable to estimate RVSP due to lack of TR jet. Pulmonic Valve * Normal pulmonic valve structure. * No pulmonic stenosis. * Trace pulmonic regurgitation. Chest CTA 03/24/17 14:28 IMPRESSION: 1. 4.9 cm fusiform aneurysm of the ascending thoracic aorta 2. Cardiomegaly D/ / Inderjit Goins MD / Inderjit Goins MD Interpreting Provider: Inderjit Goins MD Qualifiers: Congestive heart failure type: unspecified congestive heart failure type Qualified Code(s): I50.9 - Heart failure, unspecified (2) Hypertension Current Visit: Yes Status: Acute Assessment and plan: Vital signs are stable and within normal limits. Hypertension is chronic, but well controlled in hospital. Patient does not take any medications at home. Continue to monitor vital signs. Qualifiers: Hypertension type: essential hypertension Qualified Code(s): I10 - Essential (primary) hypertension (3) Tobacco use Current Visit: Yes Status: Acute Assessment and plan: Patient states she smokes approximately 1 pack per day and is not interested in smoking cessation at this time. (4) Marijuana use, continuous Current Visit: Yes Status: Chronic Assessment and plan: Patient reports smoking marijuana every other day. (5) Murmur, cardiac Current Visit: Yes Status: Acute Assessment and plan: New murmur. Patient states that he is not aware of murmur in the past. Echo showed possibly severe aortic stenosis. Pt will need valve replaced, as well as aneurysm repair. Cardiology is scheduling. (6) Elevated troponin Current Visit: Yes Status: Acute Assessment and plan: Troponin mildly elevated, flat, adynamic the setting of exacerbation of congestive heart failure., Most likely demand ischemia. Patient denies chest pain. Echocardiogram results above. Pt had LHC yesterday that showed minimal nonobstructive coronary artery disease , severe LV enlargement with severe LV dysfunction with an EF of 30%. Severe AI. Troponins are negative 3. Continue telemetry Patient has been seen by cardiology. (7) DVT prophylaxis Current Visit: Yes Status: Acute Assessment and plan: Lovenox subcutaneous. - Time Spent With Patient less than 15 minutes - Subjective Interval history: Pt seen and assessed at bedside at 1720. Pt denies chest pain and states that his SOB better. He states that he wants to go home. He reports 1 week history of nocturnal dyspnea and increasing SOB. Denies headache, dizziness, lightheadedness, chest pain, n/v/d, diaphoresis, or abdominal pain. - Constitutional Vitals: Temp Pulse Resp BP Pulse Ox 97.5 F L 51 16 103/62 100 03/25/17 14:44 03/25/17 14:44 03/25/17 14:44 03/25/17 14:44 03/25/17 14:44 General appearance: Present: cooperative, A&O X 3, pleasant, no acute distress, severe distress, answers questions appropriately - Head Head exam: Present: atraumatic, normal inspection, normocephalic - Eye Eye exam: Present: normal appearance, conjuntiva pink, sclera anicteric - Neck Neck exam general surgery: Present: supple, trachea midline. Absent: lymphadenopathy, tenderness - Respiratory Respiratory exam: Present: CTAB. Absent: accessory muscle use, chest wall tenderness, decreased breath sounds, rales, rhonchi, wheezes - Cardiovascular Cardiovascular exam: Present: RRR, +S1, +S2. Absent: diastolic murmur, gallop, rubs, systolic murmur - GI/Abdominal GI/Abdominal exam: Present: normal bowel sounds, soft, no peritoneal signs. Absent: distended, hepatomegaly, tenderness - Extremities Exam Extremities exam: Present: normal capillary refill, normal inspection, warm, radial pulses palpable and symmetrical. Absent: calf tenderness, cyanotic, pedal edema, tenderness - Neurological Exam Neurological exam: Present: alert, oriented X3, no focal deficits. Absent: facial droop, speech deficit - Skin Skin exam: Present: dry, intact, normal color, warm. Absent: rash Internal Medicine: Result - Labs CBC & Chem 7: 03/25/17 04:11 03/25/17 04:11 Labs: Short CBC 03/25/17 Range/Units 04:11 WBC 7.3 (4.3-11.1) K/mcL Hgb 15.3 (12.9-16.9) g/dL Hct 45.3 (37.5-50.1) % Plt Count 181 (140-400) K/mcL Neutrophils # 5.1 (1.6-8.9) K/mcL BMP 03/25/17 04:11 Sodium 140 Potassium 3.8 Chloride 99 Carbon Dioxide 32 H BUN 25 Creatinine 1.13 Glucose 95 Calcium 9.6 Consult Discharge Plan - Plan Referrals: [facility] [Primary Care Provider[facility] - Ruth Ann Hernandez [Family Provider] -
--- NOTE | 2017-03-25 17:37 | Discharge Summary ---
Date of Encounter: 03/25/17 Time of Encounter: 17:20 - Discharge Diagnosis (1) Acute exacerbation of CHF (congestive heart failure) Priority: Primary Status: Acute Comments: Patient reports one-week history of increasing dyspnea, last 2 days nocturnal dyspnea and orthopnea. He does not have a cough above his baseline cough. Patient denies dyspnea on exertion or chest pain. He denies any weight gain or lower extremity edema. No abdominal distention. Patient does not wear oxygen at home, however he is requiring oxygen to maintain his sats greater than 92%. Troponins were mildly elevated, flat and adynamic in the setting of exacerbation of CHF. Lungs are clear and diminished throughout. BNP was greater than 5000,1784 today . Patient had a chest x-ray at the [facility] reportedly showed small bilateral pleural effusions. CTA showed 4.9cm aneurysm or ascending thoracic aorta and pt will need aortic valve replacement. This can be done outpatient and cardiology is coordinating between [facility] and [place]. Echo results below Lasix 20 mg po daily Echocardiogram 03/22/17 17:03 Impressions: Severely dilated left ventricle. Severe LV systolic dysfunction, LVEF 30%. There is global LV hypokinesis. Mild concentric left ventricular hypertrophy. Elevated LV filling pressures. Normal right ventricular size and function. There is a small pericardial effusion present. There is no echocardiographic evidence of tamponade. Bicuspid aortic valve with fusion of right and left coronary cusps. Mild-moderate aortic stenosis. Moderate-severe aortic regurgitation, which is eccentric (directed towards anterior leaflet of the mitral valve). Mildly thickened mitral valve leaflets with bileaflet tethering. Mild mitral regurgitation. Unable to estimate RVSP due to lack of TR jet. Consider JONI to further evaluate the severity of the aortic regurgitation. Based on the severely dilated left ventricle, I suspect the aortic regurgitation is severe. Abnormal results were discussed with the inpatient cardiology consult service (Dr. Ana Rangel). Left Ventricular Wall Motion: Rest Echo Findings The apex, apical inferior, mid inferior, basal inferior, apical anterior, mid anterior, basal anterior, apical septal, mid inferior septal, basal inferior septal, apical lateral, mid anterior lateral, basal anterior lateral, mid anterior septal, mid inferior lateral, basal anterior septal and basal inferior lateral mcf[place] were hypokinetic. Findings: Study Quality * Technically adequate exam. ECG Findings * Normal sinus rhythm. Left Ventricle * Severely dilated left ventricle. * Severe LV systolic dysfunction, LVEF 30%. There is global LV hypokinesis. * Mild concentric left ventricular hypertrophy. * Elevated LV filling pressures. Right Ventricle * Normal right ventricular size and function. Left Atrium * Severely dilated left atrium. Right Atrium * Normal right atrial size. Aorta * Normally sized aortic root. Pericardium * There is a small pericardial effusion present. * There is no echocardiographic evidence of tamponade. IVC * Normal IVC dimensions and inspiratory collapse. Aortic Valve * Bicuspid aortic valve with fusion of right and left coronary cusps. * Mild-moderate aortic stenosis. * Moderate-severe aortic regurgitation, which is eccentric (directed towards anterior leaflet of the mitral valve). Mitral Valve * Mildly thickened mitral valve leaflets with bileaflet tethering. * No mitral stenosis. * Mild mitral regurgitation. 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 * No tricuspid stenosis. * Trace tricuspid regurgitation. * Unable to estimate RVSP due to lack of TR jet. Pulmonic Valve * Normal pulmonic valve structure. * No pulmonic stenosis. * Trace pulmonic regurgitation. Chest CTA 03/24/17 14:28 IMPRESSION: 1. 4.9 cm fusiform aneurysm of the ascending thoracic aorta 2. Cardiomegaly Qualifiers: Congestive heart failure type: unspecified congestive heart failure type Qualified Code(s): I50.9 - Heart failure, unspecified (2) Hypertension Priority: Secondary Status: Chronic Comments: Vital signs are stable and within normal limits. Hypertension is chronic, but well controlled in hospital. Patient does not take any medications at home. Continue to monitor vital signs. Qualifiers: Hypertension type: essential hypertension Qualified Code(s): I10 - Essential (primary) hypertension (3) Tobacco use Priority: Secondary Status: Chronic Comments: Patient states she smokes approximately 1 pack per day and is not interested in smoking cessation at this time. (4) Marijuana use, continuous Priority: Secondary Status: Chronic Comments: Patient reports smoking marijuana every other day. (5) Murmur, cardiac Priority: Secondary Status: Acute Comments: New murmur. Patient states that he is not aware of murmur in the past. Echo showed possibly severe aortic stenosis. Pt will need valve replaced, as well as aneurysm repair. Cardiology is scheduling. (6) Elevated troponin Priority: Secondary Status: Acute Comments: Troponin mildly elevated, flat, adynamic the setting of exacerbation of congestive heart failure., Most likely demand ischemia. Patient denies chest pain. Echocardiogram results above. Pt had LHC yesterday that showed minimal nonobstructive coronary artery disease , severe LV enlargement with severe LV dysfunction with an EF of 30%. Severe AI. Troponins are negative 3. Continue telemetry Patient has been seen by cardiology. (7) DVT prophylaxis Priority: Secondary Status: Acute Comments: Lovenox subcutaneous. - Discharge Medications Prescriptions: Aspirin Enteric Coated [Aspirin EC] 81 mg PO DAILY #30 tablet. Carvedilol [Coreg] 6.25 mg PO BIDWM #60 tablet Furosemide [Lasix] 20 mg PO BID #60 tablet Lisinopril [Zestril] 2.5 mg PO DAILY #16 tablet Home Medications: Aspirin Enteric Coated [Aspirin EC] 81 mg PO DAILY #30 tablet. 03/25/17 [Rx] Carvedilol [Coreg] 6.25 mg PO BIDWM #60 tablet 03/25/17 [Rx] Furosemide [Lasix] 20 mg PO BID #60 tablet 03/25/17 [Rx] Lisinopril [Zestril] 2.5 mg PO DAILY #16 tablet 03/25/17 [Rx] Allergies/Adverse Reactions: 3 Allergy/AdvReac Type Severity Reaction Status Date / Time No Known Allergies Allergy Verified 03/22/17 13:28 Procedures/tests Complete & Pending: Procedures Performed prior 72 hours Category Date Time Status CT angio chest [CT] Routine Cat Scan 03/24/17 14:28 Completed [facility] Cardiac Catheterization [CL] Stat [employer] 03/24/17 12:39 Completed ECG 12 lead ECG [ECG] Routine Y 03/23/17 00:11 Completed EV JONI transesophageal echo Routine Y 03/25/17 13:42 Completed EV echocardiogram Routine Y 03/22/17 17:03 Completed Date of admission: 03/22/17 16:19 [facility] Consults: 03/22/17 17:04 Consult to Cardiology [CONS] Routine Comment: Consulting Provider: Cardiology Am[facility] Reason for Consult: New onset CHF Time Notified: 17:05 Call Completed: Yes Discharging clinician: Liana Haas Anticipated date of discharge: 03/25/17 - Patient Status Disposition: Home, Self-Care Functional capacity at discharge: independent ambulation Overall status at discharge: patient is back to baseline - Discharge Instructions Follow Up With: [facility] [Primary Care Provider[facility] - Ruth Ann Hernandez [Family Provider] - Additional Instructions: Follow-up with cardiology as scheduled. Take her medications as directed, do not stop taking them. Please stop smoking. Return to the emergency department as needed for any other problems or concerns , or if symptoms return or worsen. Follow up with your primary care provider in the next 7-10 days. Resume your normal activities as tolerated. - Diet and Activity Diet: advance to your usual diet Hospital course: Mr. Benavides is a 61 year old male with past medical history of hypertension, and STEMI, tobacco use, marijuana use who presented to the emergency department with chest pressure. During his stay 7 echocardiogram that shows ejection fraction of 30% with severe left ventricular hypertrophy. He has a new onset murmur and will need an aortic valve replacement. Patient had acute exacerbation of CHF with a BNP greater than 5000. Patient will continue Lasix at home twice daily. He also will need to follow-up with cardiology as he also has a 4.9 cm descending thoracic aortic aneurysm that will need repair along with his aortic valve. I will send patient home with a prescription for nicotine patches, we have discussed the necessity for him to stop smoking, he says he is not interested. Will also be sent home with new prescriptions for aspirin, beta lucy, Lasix, and an Des. Vital signs and in stable, labs are stable and within normal limits. Patient will need follow-up with cardiology in 1-2 weeks. Patient is ready for discharge. Please see assessment and plan for hospital course. Time spent discussing smoking cessation with patient: 3 to 10 minutes - Time Spent with Patient Total time spent providing and/or coordinating discharge services: Less than 30 minutes - Constitutional Vitals: Temp Pulse Resp BP Pulse Ox 97.5 F L 51 16 103/62 100 03/25/17 14:44 03/25/17 14:44 03/25/17 14:44 03/25/17 14:44 03/25/17 14:44 General appearance: Present: cooperative, A&O X 3, pleasant, no acute distress, answers questions appropriately - Head Head exam: Present: atraumatic, normal inspection, normocephalic - Eye Eye exam: Present: conjuntiva pink, sclera anicteric - Neck Neck exam general surgery: Present: supple, trachea midline. Absent: lymphadenopathy - Respiratory Respiratory exam: Present: CTAB. Absent: accessory muscle use, rales, rhonchi, wheezes - Cardiovascular Cardiovascular exam: Present: RRR, +S1, +S2. Absent: diastolic murmur, gallop, rubs, systolic murmur - GI/Abdominal GI/Abdominal exam: Present: normal bowel sounds, soft. Absent: distended, hepatomegaly, tenderness - Extremities Exam Extremities exam: Present: normal capillary refill, normal inspection, warm, radial pulses palpable and symmetrical. Absent: calf tenderness, cyanotic, pedal edema, tenderness - Neurological Exam Neurological exam: Present: alert, oriented X3, no focal deficits. Absent: facial droop, speech deficit - Skin Skin exam: Present: dry, intact, normal color, warm. Absent: rash
== END 2017-03-25 18:30 | disposition home or self-care (01) | DRG 287 ==
LOC: EMEROO 13:26 → 3BNU 13:26
PROVIDERS: ADMIT Registered Nurse; ATTEND Registered Nurse